=== PATIENT | female | born 1960 | race Caucasian/White ===

== ENCOUNTER 2016-10-25 12:44 | Outpatient (CLI) | payer OTHER ==
--- NOTE | 2016-10-25 14:46 | DIAGNOSTIC IMAGING REPORT ---
PROCEDURE: DEXA BONE DENSITY STUDY CLINICAL INDICATION: Preventative Health Care, current vitamin D and calcium supplementation. COMPARISON: 04/11/2011 FINDINGS: LUMBAR SPINE: Bone mineral density 1.010 g/cm2, T score -0.3, normal, change from previous 0.4 percent . LEFT HIP: Bone mineral density 0.768 g/cm2, T score -1.4, osteopenia, change from previous -14.7 percent, significant . LEFT FEMORAL NECK: Bone mineral density 0.667 g/cm2, T score -1.6, osteopenia, change from previous -21.3 percent , significant . FRACTURE RISK CALCULATION ( when applicable): 10-year fracture risk of a major osteoporotic fracture 6.7% and of a hip fracture 0.7% (T score greater or equal to -1.0 to: NORMAL) (T score from -1.1 to -2.4: OSTEOPENIA) (T score ess than or equal to -2.5: OSTEOPOROSIS) IMPRESSION: 1. Significant interval decrease in the left hip and left femoral neck bone mineral density compared to the prior study. 2. Osteopenia mildly elevates the patient's 10-year fracture risk as described.
== END 2016-10-25 23:00 ==
LOC: XR SRH 12:44
DX: M85.88 Other specified disorders of bone density and structure, other site (principal)